=== PATIENT | female | born 1975 | race Caucasian/White ===

== ENCOUNTER 2020-10-23 18:51 | Emergency (ER) | payer OTHER, SELFPAY ==
[2020-10-23] VITALS (8 sets, daily range): BP systolic 97–146; BP diastolic 59–81; PULSE 91–98; RESP 20; TEMP 35.2–35.8; O2SAT 100
--- NOTE | 2020-10-23 18:59 | ECG_ITS ---
Measurements Intervals Isabella Rate: 93 P: 76 AK: 128 QRS: 181 QRSD: 103 T: 68 QT: 420 QTc: 525 Interpretive Statements SINUS RHYTHM RIGHT AXIS DEVIATION LEFT ATRIAL ENLARGEMENT POOR R WAVE PROGRESSION, ANTERIOR LEADS INFERIOR INFARCT, AGE INDETERMINATE BASELINE ARTIFACT- I, AVR, AVL, AVF, V3, V5-V6 ABNORMAL ECG Electronically Signed On 10-25-2020 7:26:17 CAFETERIA ASSISTANT by Moreno Ovalle D.O.
[2020-10-23] MEDS: SODIUM CHLORIDE 0.9% IV 1,000 ML 999 ML IV CONT (19:06)
--- NOTE | 2020-10-23 19:08 | ED.GENADULT ---
HPI - General Adult General Chief complaint: Weakness Stated complaint: unsure Source: patient and EMS Mode of arrival: EMS Limitations: altered mental status History of Present Illness HPI narrative: Anupama is a 45F with a PMH of insulin dependent diabetes that was brought in by EMS for feeling poor. She started feeling tired a few days ago and had some pressure in her chest and severe fatigue followed. She now says she has not had her insulin for 5 days. She is very distraught and a poor historian so more history could not be obtained. Related Data Home Medications Medication Instructions Recorded Confirmed escitalopram oxalate 10 mg PO DAILY 10/23/20 10/23/20 fluticasone propion-salmeterol 1 inh INHALATION BID 10/23/20 10/23/20 [Wixela Inhub] glipizide 5 mg PO DAILY 10/23/20 10/23/20 insulin glargine [Lantus Solostar SUBCUT 10/23/20 U-100 Insulin] metformin 850 mg PO BID 10/23/20 10/23/20 rosuvastatin 10 mg PO DAILY 10/23/20 10/23/20 Allergies Allergy/AdvReac Type Severity Reaction Status Date / Time morphine Allergy Unknown Verified 10/23/20 21:03 Review of Systems Review of Systems: ROS unobtainable: Yes unobtainable due to mental status [facility] Family History Family History Father Cerebrovascular accident Social History Social History Smoking status: Former smoker Gender identity (if verbalized by the patient): Female Exam Const: General: alert Orientation/consciousness: patient oriented x3 Other: In moderate distress. Is alert and orieted but cannot stay concentrated long enough to anser may questions. Cachectic appearing. HENMT: Head: normal to inspection Other: atraumatic Eyes: Pupils: Equal, round and reactive pupils present Neck: Neck: normal visual inspection Chest: Chest palpation & inspection: normal inspection of the chest Resp: Auscultation: clear to auscultation bilaterally and no wheezes Other: Deep rapid respirations Cardio: Rate: regular rate Rhythm: regular rhythm Heart sounds: no murmurs GI: Inspection: non-distended GI Palp: Yes Soft to palpation, No Tenderness to palpation present (GI), No Guarding due to palpation present (GI) and No Rigid due to palpation : General: Yes no CVA tenderness Urinary Catheter: Urinary Catheter: patent and draining Skin: General skin exam: normal color Rashes: no rashes Neuro: General: patient oriented x3 Extrem: General: normal to inspection Psych: Appearance: disheveled Attitude: not cooperative Course Course Emergency Course: Anupama was evaluated. As her temp was low she was given warm blankets, and given warm IV fluids. Labs were ordered as below. She had normal saline running wide open. Blood gas showed a pH of 6.86. Because of this a Bicarb drip was started. CMP showed a K+ of 3.7 and a sugar of 490. Next she was given 20 mEq of potassium. Fluids were continued and a 5u insulin bolus was given. Then she was started at 5u per hour. [facility] was called at 2024. The hospitalist called back at 2034. I discussed the case with Dr. Bennett Nath. She accepted the patient for transfer. Repeat accucheck was 386. She was transferred to the [facility] ICU by ALS. Vital Signs Vital signs: Vital Signs Pulse Rate 91 10/23/20 19:15 Respiratory Rate 20 10/23/20 19:15 Blood Pressure 143/65 H 10/23/20 19:15 Pulse Oximetry 100 10/23/20 19:15 Temperature 95.6 F L 10/23/20 20:00 Pulse Rate 98 10/23/20 21:19 Respiratory Rate 20 10/23/20 21:13 Blood Pressure 144/76 H 10/23/20 21:13 Pulse Oximetry 100 10/23/20 21:13 Medical Decision Making Vital Signs Vital Signs: Vital Signs Pulse Rate 91 10/23/20 19:15 Respiratory Rate 20 10/23/20 19:15 Blood Pressure 143/65 H 10/23/20 19:15 Pulse Oximetry 100 10/23/20 19:15 Temperature 95.6 F L 10/23/20 20:00
[2020-10-23 19:25] LABS: Base Excess ABG -29.7 mmol/L (0-2); Basophils Absolute Auto 0.06 K/mm3 (0.00-0.10); Basophils Percent Auto 0.4 % (0.0-1.0); Eosinophils Absolute Auto 0.01 K/mm3 (0.02-0.50); Eosinophils Percent Auto 0.1 % (1.0-6.0); HCO3 ABG 2.8 mmol/L (23-29); Hematocrit 48.6 % (35.0-49.0); Hemoglobin 16.5 g/dL (12.0-15.0); Immature Granulocyte Absolute 0.24 K/mm3 (0.00-0.00); Immature Granulocyte Percent A 1.5 % (0.0-0.0); Lymphocytes Absolute Auto 1.34 K/mm3 (1.10-4.50); Lymphocytes Percent Auto 8.5 % (18.0-42.0); Mean Corpuscular Hemoglobin 31.3 pg (27.0-31.0); Mean Corpuscular Volume 92.2 fL (78.0-102.0); Mean Platelet Volume 11.3 fl (9.2-11.8); Monocytes Absolute Auto 0.82 K/mm3 (0.10-0.90); Monocytes Percent Auto 5.2 % (2.0-11.0); Neutrophils Absolute Auto 13.3 K/mm3 (1.7-7.2); Neutrophils Percent Auto 84.3 % (50.0-70.0); Oxygen Content ABG 20.9 %vol (16.0-22.0); Oxygen Saturation ABG 98.2 % (95-97); Oxyhemoglobin 97.5 % (94-100); PO2 ABG 147.9 mmHg (80-90); Platelet Count Result 111 K/mm3 (150-420); Red Blood Count 5.27 M/mm3 (4.20-5.40); Red Cell Distribution Width 12.4 % (11.6-14.4); Total Hemoglobin 15.1 g/dL; White Blood Count 15.8 K/mm3 (4.8-10.8)
[2020-10-23 19:29] LABS: Device ROOM AIR; Modified Allen's Test Pass; PCO2 ABG 15.8 mmHg (35-45); Site Drawn RIGHT RADIAL; pH ABG 6.86 (7.35-7.45)
[2020-10-23 19:39] LABS: Prothrombin Time 10.6 Seconds (9.50-12.10)
[2020-10-23 19:45] LABS: Lactic Acid Reflex 4.4 mmol/L (0.4-2.0)
[2020-10-23 19:47] LABS: BNP 17.1 pg/mL (0-100); Troponin I < 0.02 ng/mL (0.00-0.056)
[2020-10-23 19:48] LABS: Alanine Aminotransferase 47 U/L (14-59); Albumin Level 3.3 g/dL (3.4-5.0); Alkaline Phosphatase 176 U/L (46-116); Anion Gap 30 mmol/L (8-16); Aspartate Amino Transferase 26 U/L (15-37); Bilirubin,Total 0.4 mg/dL (0.00-1.00); Blood Urea Nitrogen 33 mg/dL (7-18); Calcium 8.4 mg/dL (8.5-10.1); Carbon Dioxide 6 mmol/L (21-32); Chloride 95 mmol/L (98-108); Estimated CRCL calculation 42 ml/min; Estimated Glomerular Filt Rate 47; Lipase 43 U/L (73-393); Osmolality Calculated 301 mOsm/kg (285-295); Potassium 3.7 mmol/L (3.5-5.1); Sodium 131 mmol/L (136-145); Total Protein 7.5 g/dL (6.4-8.2)
[2020-10-23 19:49] LABS: Glucose 490 mg/dL (70-99)
[2020-10-23] MEDS: KCL 20 MEQ/SW 100 ML 100 ML 50 MEQ IVPB (20:00)
[2020-10-23] MEDS: SODIUM BICARBONATE 8.4% 150 MEQ in WATER, STERILE FOR INJECTION 950 ML 50 MEQ IV CONT (20:24)
--- NOTE | 2020-10-23 20:26 | PC.NURSE ---
RUSTY PHARMACIST FROM [facility] CALLED FOR CONSULT ON 1,000 ML STERILE WATER WITH 150 MEQ 8.4 SODIUM BICARBONATE - VERIFIED WITH DR WHITMORE
[2020-10-23] MEDS: INSULIN HUMAN REGULAR (*BKC) 100 UNITS/ML IV PUSH (20:40)
[2020-10-23] MEDS: SODIUM CHLORIDE 0.9% IV 2,000 ML 999 ML (20:42)
[2020-10-23] MEDS: INSULIN HUMAN REGULAR (*BKC) 100 UNITS in SODIUM CHLORIDE 0.9% IV 99 ML IV CONT (20:43)
[2020-10-23 20:50] LABS: Glucose Point of Care 386 (65-105)
[2020-10-23 20:56] LABS: Add Urine Microscopic? YES; Appearance Urine Clear (Clear); Bilirubin Urine Negative (Negative); Blood Urine 1+ (Negative); Color Urine Yellow (Yellow); Glucose Urine UA 3+ (Negative); Ketones Urine 3+ (Negative); Leukocyte Esterase Ur Negative (Negative); Nitrate Urine Negative (Negative); Protein Urine 2+ (Negative); Specific Grav Ur >= 1.030 (1.010-1.020); Urobilinogen Urine 0.2 mg/dL (0.2-1.0)
[2020-10-23 21:01] LABS: WBC Urine 0-3 /hpf (0-3)
[2020-10-23 21:02] LABS: Bacteria Urine Trace /hpf; Squamous Epithelial Cell Urine Moderate /hpf (Few)
[2020-10-23 21:37] LABS: Glucose Point of Care 326 (65-105)
[2020-10-23 22:22] LABS: Reflex Lactic Acid Yes or No Add Lactic
[2020-10-23 22:38] LABS: Glucose Point of Care 335 (65-105)
== END 2020-10-23 22:00 | disposition short-term general hospital (02) ==
PROVIDERS: Emergency Provider Family Medicine
DX: E11.10 Type 2 diabetes mellitus with ketoacidosis without coma (principal); Z79.4 Long term (current) use of insulin
CPT/HCPCS: 36415; 36600; 80053; 81001; 82805; 83605; 83690; 83880; 84484; 85025; 85610; 93005; 96361; 96365; 96366; 96367; 96368; 99285; 99291; J1815; J3480; J7030

== ENCOUNTER 2020-10-23 22:38 | Inpatient (IN) | payer OTHER, SELFPAY ==
--- NOTE | ~2020-10-23 | XR_ITS ---
XR chest 2V DATE: 10/24/2020 13:59 INDICATION: Shortness of breath. Weight loss. TECHNIQUE: AP and lateral views COMPARISON: 02/09/2017 AP chest FINDINGS: Status post sternotomy. Normal heart size. No hilar or mediastinal enlargement. No pulmonary infiltrate or consolidation, ple ural effusion or pulmonary vascular congestion or pneumothorax. Surgical clips, right upper quadrant, consistent with cholecystectomy. IMPRESSION: No active cardiopulmonary disease Status post cholecystectomy Reviewed, dictated and finalized at location A. BING MACHINE OPERATOR
--- NOTE | 2020-10-23 23:00 | PM.IMHP ---
H&P: HPI History of Present Illness Date/Time: 10/23/20 23:00 Chief complaint: DKA Narrative: Anupama Jang is a 45 year old female with PMHx significant for, COPD, Tobacco use, LUIS on CPAP, Insulin dependent Diabetes Mellitus, Pulmonic valve replacement, to bioprosthetic according to records from outside facility. Patient presented to ED at outside facility due to fatigue, feeling poorly, not using her insulin in roughly 5 days. Patient is not giving much history at the present time, much of this was obtained form ED and medical records. Preliminary work up was significant for High Anion Gap metabolic acidosis, patient also hypothermic upon arrival to outside's facility ED. Most work up is low yielding. Patient is now transferred to our facility and in ICU. Review of Systems Review of Systems: Narrative: Patient feeling very fatigue. Unable to obtain more history as patient is not cooperating with history taking currently. Only y/n answers [facility] Family History Family History Father Cerebrovascular accident Social History Social History Years smoked: 10 Smoking status: Current every day smoker Tobacco type: cigarettes Second hand tobacco smoke exposure: Yes Alcohol intake: never Substance use type: marijuana Last use: month ago Gender identity (if verbalized by the patient): Female Spiritual care concerns: No Meds Home Medications and Allergies Home Medications Medication Instructions Recorded Confirmed Type escitalopram oxalate 10 mg PO DAILY 10/23/20 10/23/20 History fluticasone propion-salmeterol 1 inh INHALATION BID 10/23/20 10/23/20 History [Wixela Inhub] glipizide 5 mg PO DAILY 10/23/20 10/23/20 History insulin glargine [Lantus Solostar SUBCUT 10/23/20 History U-100 Insulin] metformin 850 mg PO BID 10/23/20 10/23/20 History rosuvastatin 10 mg PO DAILY 10/23/20 10/23/20 History Allergies Allergy/AdvReac Type Severity Reaction Status Date / Time morphine Allergy Unknown Verified 10/23/20 21:03 Exam Narrative: Exam Narrative: Acutely ill looking in bed. Sleeping. Const: General: ill appearing, lethargic and tired appearing Nutritional Appearance: cachectic Orientation/consciousness: patient oriented x3, lethargic and Other orientation findings (Easily arousable.) HENMT: Head: normal to inspection and normocephalic Ears: hearing grossly normal bilaterally General nose exam: Normal external nose present Face and sinus: other (schar on chin which is healed.) Mouth: Yes Normal oral and palatal mucosa present Eyes: General: appearance normal, both eyes and all related structures Pupils: Equal, round and reactive pupils present EOM: EOMs intact bilaterally Neck: Neck: normal visual inspection, full ROM, no lymphadenopathy and no JVD Resp: Effort & Inspection: normal respiratory effort, able to speak in complete sentences and tachypneic Auscultation: clear to auscultation bilaterally Cardio: Jugular venous distension: no JVD Heart sounds: S1 normal heart sound present and S2 normal heart sound present GI: Inspection: normal to inspection GI Palp: Yes Soft to palpation and Yes No hepatosplenomegaly present Skin: Lesions: other (Chin schar which is healed) Rashes: no rashes Trauma: no lacerations or abrasions Wounds: no wounds Neuro: General: patient oriented x3 and CN's II-XI intact bilaterally Cranial nerves: Yes CN's II-XII intact bilaterally and Yes Equal, round and reactive pupils present Cognition (Neuro): normal cognition Speech: normal speech Motor exam (neuro): 5/5 motor strength present throughout Sensory Exam: normal sensation Extrem: General: normal to inspection, no joint enlargement and no pedal edema Assessment and Plan Assessment and plan (1) DKA (diabetic ketoacidoses): Code(s): E11.10 - Type 2 diabetes mellitus with ketoacidos
[2020-10-23] MEDS: INSULIN HUMAN REGULAR (*BKC) 100 UNITS in SODIUM CHLORIDE 0.9% IV 99 ML 5.5 UNITS IV CONT (23:30)
[2020-10-23 23:39] VITALS: BMI 16.7
--- NOTE | 2020-10-23 23:49 | ADMIMU ---
This patient, Anupama Jang, was admitted to ICU status, and placed in Intensive Care Unit-3 at 2227. Patient/family oriented to hospital policies and general routines including ID bracelet, bed and alarms, visiting hours, pain management, procedures, bathroom and other care routines, personal items, smoking policy, room service/diet, and visiting hours. Pt declines wanting anything locked in safe. Information on how to activate the Rapid Response Team has been discussed. Patient/Family are encouraged to report perceived risks to care and to ask questions if they do not understand what they are told or what they should do.
--- NOTE | 2020-10-23 23:50 | PC.NURSE ---
Pt extremely sleeping during admission assessment. Questions answered to best of patients ability at this time.
[2020-10-24] VITALS (10 sets, daily range): BP systolic 98–115; BP diastolic 54–79; PULSE 92–108; RESP 10–20; TEMP 36.3–37; O2SAT 91–100
[2020-10-24] MEDS: SODIUM CHLORIDE 0.9% IV 1,000 ML 150 ML IV CONT (00:06)
[2020-10-24 00:39] LABS: Anion Gap 16 mmol/L (8-16); Blood Urea Nitrogen 25 mg/dL (7-17); Calcium 7.4 mg/dL (8.4-10.2); Carbon Dioxide 6 mmol/L (22-30); Chloride 111 mmol/L (98-107); Estimated CRCL calculation 74 ml/min; Estimated Glomerular Filt Rate > 60; Glucose 309 mg/dL (65-105); Magnesium 1.4 mg/dL (1.6-2.3); Phosphorus 2.4 mg/dL (2.5-4.5); Potassium 3.5 mmol/L (3.4-5.0); Sodium 133 mmol/L (137-145)
[2020-10-24 01:19] LABS: Glucose Point of Care 302 (65-105)
[2020-10-24 01:36] LABS: Glucose Point of Care 274 (65-105)
[2020-10-24] MEDS: KCL 20 MEQ/D5/0.45% SOD CHL 1,000 ML 150 ML IV CONT ×2 (02:41→10:01)
[2020-10-24 02:44] LABS: Glucose Point of Care 210 (65-105)
[2020-10-24 02:53] LABS: Add Urine Microscopic? YES; Amorphous Sediment Urine Few; Appearance Urine Clear (Clear); Bacteria Urine Trace /hpf; Bilirubin Urine Negative (Negative); Blood Urine 2+ (Negative); Color Urine Straw (Yellow); Glucose Urine UA 3+ mg/dL (Negative); Ketones Urine 1+ mg/dL (Negative); Leukocyte Esterase Ur Negative LEU/UL (NEGATIVE); Mucus Urine Rare /lpf; Nitrate Urine Negative (Negative); Protein Urine 1+ mg/dL (Negative); RBC Urine 0-2 /hpf (0-2); Squamous Epithelial Cell Urine Occasional /hpf (Few); Urobilinogen Urine Negative mg/dL (<2.0); WBC Urine 0-3 /hpf (0-3)
[2020-10-24 03:45] LABS: Anion Gap 10 mmol/L (8-16); Blood Urea Nitrogen 24 mg/dL (7-17); Calcium 7.5 mg/dL (8.4-10.2); Carbon Dioxide 11 mmol/L (22-30); Chloride 115 mmol/L (98-107); Estimated CRCL calculation 106 ml/min; Estimated Glomerular Filt Rate > 60; Glucose 199 mg/dL (65-105); Sodium 136 mmol/L (137-145)
[2020-10-24 03:47] LABS: Potassium 3.7 mmol/L (3.4-5.0)
[2020-10-24 05:47] LABS: Glucose Point of Care 179 (65-105)
[2020-10-24 06:47] LABS: Glucose Point of Care 142 (65-105)
[2020-10-24 06:47] LABS: Glucose Point of Care 185 (65-105)
[2020-10-24 07:30] LABS: Glucose Point of Care 144 (65-105)
[2020-10-24 07:57] LABS: Anion Gap 8 mmol/L (8-16); Blood Urea Nitrogen 21 mg/dL (7-17); Calcium 7.6 mg/dL (8.4-10.2); Carbon Dioxide 16 mmol/L (22-30); Chloride 112 mmol/L (98-107); Estimated CRCL calculation 105 ml/min; Estimated Glomerular Filt Rate > 60; Glucose 139 mg/dL (65-105); Sodium 136 mmol/L (137-145)
[2020-10-24 08:37] LABS: Potassium 2.9 mmol/L (3.4-5.0)
--- NOTE | 2020-10-24 08:42 | WPDCNINT ---
Assessment and Plan Assessment and plan (1) DKA (diabetic ketoacidoses): Qualifiers: Diabetes mellitus complication detail: without coma Diabetes mellitus type: type 1 Qualified Code(s): E10.10 - Type 1 diabetes mellitus with ketoacidosis without coma Code(s): E11.10 - Type 2 diabetes mellitus with ketoacidosis without coma Status: Acute Assessment and Plan: Due to not adherence with insulin regimen. Patient is on an insulin drip per protocol. Will titrate her dextrose infusion the patient's anion gap has closed his CO2 remains markedly low. Monitor serial BMP for improvement in bicarb. Advanced diet to sugar free clears. The patient's repeat BMP demonstrated improved bicarb. Will transition the patient to Lantus 20 units subq HS and moderate sliding scale insulin with Accu-Cheks a.c. HS and consistent carbohydrate diet. Patient will be transferred to the medical floor. (2) LUIS (obstructive sleep apnea): Code(s): G47.33 - Obstructive sleep apnea (adult) (pediatric) Status: Acute Assessment and Plan: She has a history of obstructive sleep apnea but has not used her CPAP machine in a couple of years. She has had significant weight loss and is unlikely that he is still as sleep apnea. Will check apnea link. (3) COPD (chronic obstructive pulmonary disease): Qualifiers: COPD type: unspecified COPD Qualified Code(s): J44.9 - Chronic obstructive pulmonary disease, unspecified Code(s): J44.9 - Chronic obstructive pulmonary disease, unspecified Status: Acute Assessment and Plan: No evidence of acute exacerbation. I attempted to discuss the importance of tobacco cessation with the patient however she is not interested in quitting smoking. (4) Hypokalemia: Code(s): E87.6 - Hypokalemia Status: Acute Assessment and Plan: 40 mEq potassium chloride rider has been ordered. Repeat BMP demonstrated worsening hypokalemia. An additional 40 p.o. has been given now and 40 p.o. at 2:00 p.m. repeat BMP at 6:00 p.m. (5) Hypomagnesemia: Code(s): E83.42 - Hypomagnesemia Status: Acute Assessment and Plan: 3 g magnesium sulfate rider has been ordered. (6) Pulmonary stenosis: Qualifiers: Cardiac valve disease etiology: nonrheumatic Qualified Code(s): I37.0 - Nonrheumatic pulmonary valve stenosis Code(s): I37.0 - Nonrheumatic pulmonary valve stenosis Status: Acute Assessment and Plan: Given the patient reports orthopnea and dyspnea on exertion as well as lower extremity swelling will check an echocardiogram to further delineate the patient's cardiac structure and function. She has not had echo since 2017. (7) Protein-calorie malnutrition, severe: Code(s): E43 - Unspecified severe protein-calorie malnutrition Status: Acute Assessment and Plan: Most likely due to non adherence was insulin regimen and subsequent catabolic state. family educator and dietitian consult. Given the patient's history of tobacco abuse and cachectic state will check a chest x-ray. Additional Plan 1 hour spent in critical care activities. This case had a high probability of a clinically significant, sudden, or life threatening deterioration of this patient's condition which required my full and direct attention, intervention and personal management. Steward/Stewardess Dining Room Consult Note Consult date: 10/24/20 Time Seen: 09:00 HPI: Anupama Jang is a 45 year old female with a past medical history of primary pulmonary stenosis status post open heart surgery, persistent right ventricular systolic dysfunction and insulin-dependent diabetes mellitus who presented to the ER at [place] due to generalized weakness. The patient was noted to be in DKA and was transferred to our facility. The patient had not taken her insulin and 4-5 days. She denies having any abdominal pain, no nausea or vomiting. W
[2020-10-24 09:16] LABS: Glucose Point of Care 110 (65-105)
[2020-10-24 09:16] LABS: Glucose Point of Care 141 (65-105)
[2020-10-24] MEDS: LACTATED RINGERS 1,000 ML 999 ML IV CONT (10:08)
[2020-10-24] MEDS: MAGNESIUM SULFATE 3GM/D5W100ML 3 GM/100 ML BAG IVPB (10:09)
[2020-10-24 10:20] LABS: Glucose Point of Care 152 (65-105)
[2020-10-24] MEDS: POTASSIUM CHLORIDE 20 MEQ TABLET 40 MEQ PO ×2 (10:57→13:27)
[2020-10-24 11:13] LABS: Glucose Point of Care 129 (65-105)
[2020-10-24 11:31] LABS: Anion Gap 5 mmol/L (8-16); Blood Urea Nitrogen 19 mg/dL (7-17); Calcium 7.3 mg/dL (8.4-10.2); Carbon Dioxide 18 mmol/L (22-30); Chloride 111 mmol/L (98-107); Estimated CRCL calculation 105 ml/min; Estimated Glomerular Filt Rate > 60; Glucose 109 mg/dL (65-105); Potassium 2.6 mmol/L (3.4-5.0); Sodium 134 mmol/L (137-145)
[2020-10-24 12:25] LABS: Glucose Point of Care 105 (65-105)
[2020-10-24] MEDS: INSULIN GLARGINE (*BKC) 100 UNITS/ML SUB-Q (12:34)
[2020-10-24 13:11] LABS: Glucose Point of Care 112 (65-105)
--- NOTE | 2020-10-24 13:14 | PM.IMPN ---
Progress Note: A&P Assessment and Plan (1) DKA (diabetic ketoacidoses): Qualifiers: Diabetes mellitus type: type 1 Diabetes mellitus complication detail: without coma Qualified Code(s): E10.10 - Type 1 diabetes mellitus with ketoacidosis without coma Code(s): E11.10 - Type 2 diabetes mellitus with ketoacidosis without coma Status: Acute Assessment and Plan: -secondary to non adherence to insulin -DKA resolved, gap closed x2, patient tolerating p.o. intake -repleting potassium as needed for potassium shift with insulin -she has been transitioned back to her home Lantus 20 units q.h.s., consistent carb diet with sliding scale insulin coverage -Patient will be transferred to the medical floor as she is clinically improving (2) LUIS (obstructive sleep apnea): Code(s): G47.33 - Obstructive sleep apnea (adult) (pediatric) Status: Acute Assessment and Plan: Patient has lost significant weight and sleep apnea issue she may have resolved (3) COPD (chronic obstructive pulmonary disease): Qualifiers: COPD type: unspecified COPD Qualified Code(s): J44.9 - Chronic obstructive pulmonary disease, unspecified Code(s): J44.9 - Chronic obstructive pulmonary disease, unspecified Status: Acute Assessment and Plan: No interest in tobacco cessation at this time (4) Hypokalemia: Code(s): E87.6 - Hypokalemia Status: Acute Assessment and Plan: Secondary to DKA insulin administration, repleting with p.o. and IV potassium chloride (5) Hypomagnesemia: Code(s): E83.42 - Hypomagnesemia Status: Acute Assessment and Plan: Supplementing magnesium, 3 g Mag sulfate given (6) Pulmonary stenosis: Qualifiers: Cardiac valve disease etiology: nonrheumatic Qualified Code(s): I37.0 - Nonrheumatic pulmonary valve stenosis Code(s): I37.0 - Nonrheumatic pulmonary valve stenosis Status: Acute Assessment and Plan: -evident murmur -last echocardiogram was 2016, no sign of exacerbation at this time pulmonary stenosis will follow-up with PCP (7) Protein-calorie malnutrition, severe: Code(s): E43 - Unspecified severe protein-calorie malnutrition Status: Acute Assessment and Plan: Chest x-ray negative Patient is a follow-up with dietitian Additional Plan Diet: Carb controlled DVT prophylaxis: SCDs Code status: Full code Disposition: Home Subjective Date/time seen: 10/24/20 13:14 Patient examined. She was admitted for DKA from not taking her medications. She is on metformin b.i.d., glipizide, Lantus 20 units q.h.s.. She admitted to the ICU and her gap from 30 has been corrected. Her potassium is being repleted and she is stable to move out to the medical floor. transition the patient back to her home Lantus 20 units q.h.s. and metformin. Patient's PCP is Dr. Peter Bianchi. Patient states prior to admission she had polyuria, polydipsia these are all consistent with DKA. She states she ran out of her medications and that she may have gone to DKA. Patient advanced to carb controlled diet. Patient may need echocardiogram with pulmonary stenosis history. Review of Systems Review of Systems: All systems reviewed & are unremarkable except as noted in HPI and below Exam Narrative: Exam Narrative: - GENERAL: Thin ill-appearing disheveled woman in no acute distress eating her lunch - EYES: EOMI. Anicteric. - HENT: Moist mucous membranes. Bruise on chin. - LUNGS: Clear to auscultation bilaterally, no wheezing, rhonchi, or rales. - CARDIOVASCULAR: Regular rate and rhythm. Murmur 2/6. No JVD. - ABDOMEN: Soft, non-tender and non-distended. - EXTREMITIES: No edema. Peripheral pulses 2+. Non-tender. - NEUROLOGIC: No focal neurological deficits. CN II-XII grossly intact. - PSYCHIATRIC: Awake, Alert and oriented x 3. Appropriate mood and affect. - SKIN: No rashes or lesions. Warm. - LYMPH: No cerv
[2020-10-24] MEDS: SODIUM CHLORIDE 0.9% IV 1,000 ML 125 ML IV CONT ×2 (13:20→21:48)
[2020-10-24 14:31] LABS: Hemoglobin A1C > 14.0 % (<5.7)
--- NOTE | 2020-10-24 15:22 | PC.NURSE ---
Transferred patient to 258 from ICU 3 at 1513. Personal belongings sent with patient. Report called to Loraine.
[2020-10-24 16:36] LABS: Glucose Point of Care 331 (65-105)
[2020-10-24] MEDS: INSULIN ASPART (*BKC) 100 UNITS/ML SUB-Q (16:50)
[2020-10-24 18:59] LABS: Anion Gap 3 mmol/L (8-16); Blood Urea Nitrogen 16 mg/dL (7-17); Calcium 7.2 mg/dL (8.4-10.2); Carbon Dioxide 21 mmol/L (22-30); Chloride 107 mmol/L (98-107); Estimated CRCL calculation 105 ml/min; Estimated Glomerular Filt Rate > 60; Glucose 343 mg/dL (65-105); Potassium 3.7 mmol/L (3.4-5.0); Sodium 131 mmol/L (137-145)
[2020-10-24] MEDS: INSULIN ASPART (*BKC) 100 UNITS/ML 10 UNITS SUB-Q (21:14)
[2020-10-24] MEDS: INSULIN GLARGINE (*BKC) 100 UNITS/ML 20 UNITS SUB-Q (21:15)
[2020-10-24 22:21] LABS: Glucose Point of Care 441 (65-105)
[2020-10-24] MEDS: FLUTICASONE/SALMETEROL 115-21 MCG INHALER 1 PUFF 2 PUFF INHALATION (22:29)
[2020-10-24 23:49] LABS: Anion Gap 4 mmol/L (8-16); Blood Urea Nitrogen 13 mg/dL (7-17); Calcium 7.8 mg/dL (8.4-10.2); Carbon Dioxide 23 mmol/L (22-30); Chloride 106 mmol/L (98-107); Estimated CRCL calculation 105 ml/min; Estimated Glomerular Filt Rate > 60; Glucose 206 mg/dL (65-105); Potassium 3.3 mmol/L (3.4-5.0); Sodium 133 mmol/L (137-145)
--- NOTE | 2020-10-25 | ECHO_ITS ---
Patient Info Name: Anupama Jang Age: 45 years : 1975 Gender: Female Ht: 65 in Wt: 100 lbs BSA: 1.43 m2 HR: 100 bpm BP: 126 / 74 mmHg Heart Rhythm: Tachycardia Technical Quality: Good Exam Date: 10/25/2020 10:29 AM Exam Location: [facility] Patient Status: Inpatient Admit Date: 10/23/2020 Staff Ordering Physician: Nikki Gonzalez DO Automatic Silk Screen Printer: Curly Rodney RDCS Attending Provider: Pham Guajardo MD Referring Physician: Carlos VOGEL; Exam Type: CA echo doppler color flow Study Info Indications Q22.1 - Congenital pulmonary valve stenosis Complete two-dimensional, color flow and Doppler transthoracic echocardiogram is performed. History/Risk Factors Pulmonary valve stenosis s/p bioprosthetic PVR; T1DM, DKA, COPD, orthopnea, SOB, edema. Summary 1. Right ventricular systolic function is normal. 2. Prominent moderator band. 3. Focal, echogenic hypertrophy at that mid RV level suggestive of calcified papillary muscle heads. In significant intracavitary gradient with abnormal outflow tract contour. 4. Left ventricular systolic function is normal, estimated at >70%. 5. There is no increased left ventricular wall thickness. 6. Left ventricular septal wall motion is abnormal with septal motion related to bundle branch block. 7. There is mild tricuspid valve regurgitation. 8. Moderate pulmonary hypertension, estimated pulmonary arterial systolic pressure is 48 mmHg. 9. Apparent bioprosthetic valve in the pulmonic position with mild stenosis, moderate leaflet sclerosis and mean gradient 16 mmHg. Leaflets not well visualized in several views. 10. There is trace pulmonic regurgitation. Left Ventricle Left ventricular chamber dimension is normal. Left ventricular systolic function is normal, estimated at >70%. There is no increased left ventricular wall thickness. Left ventricular septal wall motion is abnormal with septal motion related to bundle branch block. The left ventricular diastolic function is normal. Right Ventricle Right ventricular chamber dimension is normal. Right ventricular systolic function is normal. Prominent moderator band. Focal, echogenic hypertrophy at that mid RV level suggestive of calcified papillary muscle heads. In significant intracavitary gradient with abnormal outflow tract contour. Left Atria Left atrial chamber dimension is normal. Right Atria Right atrial chamber dimension is normal. Aortic Valve The aortic valve is trileaflet. There is no aortic valve stenosis. There is no aortic valve regurgitation. Pulmonic Valve The pulmonic valve is not well visualized. There is mild pulmonic valve stenosis. There is trace pulmonic regurgitation. There is mild pulmonic valve calcification. Apparent bioprosthetic valve in the pulmonic position with mild stenosis, moderate leaflet sclerosis and mean gradient 16 mmHg. Leaflets not well visualized in several views. Mitral Valve The mitral valve has normal leaflets. There is trace mitral valve regurgitation. Tricuspid Valve The tricuspid valve leaflets are normal. There is mild tricuspid valve regurgitation. Moderate pulmonary hypertension, estimated pulmonary arterial systolic pressure is 48 mmHg. Pericardium/Pleural The pericardium appears normal. There is trivial pericardial effusion. Inferior Vena Cava Normal inferior vena cava with >50% collapse upon inspiration consistent with normal right atrial pressure, 5 mmHg. Aorta
[2020-10-25 00:11] LABS: Glucose Point of Care 169 (65-105)
[2020-10-25 01:13] LABS: Glucose Point of Care 222 (65-105)
[2020-10-25 05:33] VITALS: BP 122/77; PULSE 107; RESP 20; TEMP 36.5; O2SAT 99
[2020-10-25 05:48] LABS: Hematocrit 32.8 % (37.0-47.0); Hemoglobin 11.8 g/dL (12.0-15.0); Mean Corpuscular Hemoglobin 31.2 pg (26-34); Mean Corpuscular Volume 86.8 fl (80-100); Mean Platelet Volume 10.8 fl (7.4-10.4); Platelet Count Result 79 k/mm3 (150-375); Red Blood Count 3.78 M/mm3 (4.2-5.4); Red Cell Distribution Width 13.2 % (11.5-14.5); White Blood Count 8.5 K/mm3 (4.5-10.0)
[2020-10-25 05:49] LABS: Alanine Aminotransferase 38 U/L (4-35); Albumin Level 2.4 g/dL (3.5-5.1); Alkaline Phosphatase 123 U/L (38-126); Anion Gap 0 mmol/L (8-16); Aspartate Amino Transferase 59 U/L (14-36); Bilirubin,Total 0.2 mg/dL (0.2-1.3); Blood Urea Nitrogen 11 mg/dL (7-17); Calcium 7.3 mg/dL (8.4-10.2); Carbon Dioxide 24 mmol/L (22-30); Chloride 109 mmol/L (98-107); Estimated CRCL calculation 135 ml/min; Estimated Glomerular Filt Rate > 60; Glucose 193 mg/dL (65-105); Magnesium 1.8 mg/dL (1.6-2.3); Potassium 3.1 mmol/L (3.4-5.0); Sodium 133 mmol/L (137-145)
[2020-10-25] MEDS: SODIUM CHLORIDE 0.9% IV 1,000 ML 125 ML IV CONT (05:56)
[2020-10-25 07:50] LABS: Glucose Point of Care 193 (65-105)
[2020-10-25 08:00] VITALS: BP 126/74; PULSE 102; RESP 18; TEMP 36.3; O2SAT 100
[2020-10-25 08:10] LABS: Glucose Point of Care 94 (65-105)
[2020-10-25 08:13] LABS: Glucose Point of Care 67 (65-105)
[2020-10-25 08:14] LABS: Glucose Point of Care 110 (65-105)
[2020-10-25 08:26] VITALS: RESP 20; O2SAT 99
--- NOTE | 2020-10-25 09:32 | PM.DS ---
DS: Admitting Diagnosis Admitting Diagnosis Admitting Diagnosis: DKA DS: Discharge Diagnosis Discharge Diagnosis (1) DKA (diabetic ketoacidoses): Qualifiers: Diabetes mellitus complication detail: without coma Diabetes mellitus type: type 1 Qualified Code(s): E10.10 - Type 1 diabetes mellitus with ketoacidosis without coma Code(s): E11.10 - Type 2 diabetes mellitus with ketoacidosis without coma Status: Acute Assessment and Plan: -secondary to non adherence to insulin -DKA resolved, gap closed x2, patient tolerating p.o. intake -repleting potassium as needed for potassium shift with insulin -she has been transitioned back to her home Lantus 20 units q.h.s., consistent carb diet with sliding scale insulin coverage -diabetic Education (2) LUIS (obstructive sleep apnea): Code(s): G47.33 - Obstructive sleep apnea (adult) (pediatric) Status: Acute Assessment and Plan: Patient has lost significant weight and sleep apnea issue she may have resolved (3) COPD (chronic obstructive pulmonary disease): Qualifiers: COPD type: unspecified COPD Qualified Code(s): J44.9 - Chronic obstructive pulmonary disease, unspecified Code(s): J44.9 - Chronic obstructive pulmonary disease, unspecified Status: Acute Assessment and Plan: No interest in tobacco cessation at this time (4) Hypokalemia: Code(s): E87.6 - Hypokalemia Status: Acute Assessment and Plan: Secondary to DKA insulin administration, repleting with p.o. potassium (5) Hypomagnesemia: Code(s): E83.42 - Hypomagnesemia Status: Acute Assessment and Plan: Supplementing magnesium, 3 g Mag sulfate given (6) Pulmonary stenosis: Qualifiers: Cardiac valve disease etiology: nonrheumatic Qualified Code(s): I37.0 - Nonrheumatic pulmonary valve stenosis Code(s): I37.0 - Nonrheumatic pulmonary valve stenosis Status: Acute Assessment and Plan: -evident murmur -last echocardiogram was 2016, repeat echocardiogram done 10/25/2020, no sign of exacerbation at this time pulmonary stenosis will follow-up with PCP (7) Protein-calorie malnutrition, severe: Code(s): E43 - Unspecified severe protein-calorie malnutrition Status: Acute Assessment and Plan: -chemical educator consulted, patient refused to talk a chemical educator DS: Summary Hospital Course Reason for hospitalization: Diabetic ketoacidosis Hospital Course: Patient is a 45-year-old woman noncompliant diabetic comes to the hospital with DKA. She states she stopped taking her insulin few days ago and progressively had polydipsia polyuria and went into DKA. She is brought to the hospital by EMS. A DKA was resolved with insulin drip and a short ICU stay. We were able to transition patient back to her home regimen metformin b.i.d. and Lantus 20 units q.h.s.. Her potassium was repeated for DKA. Patient refused to talk to chemical educator. I encouraged patient to change her attitude toward her diabetes, otherwise she will do poorly, and that she has been on life at risk. I also attempted smoking cessation discussion however she was not receptive. Patient states she would like to follow-up with her PCP her diabetes management. I gave refills for Lantus and metformin. Patient's DKA was from lack of insulin use, a refill and hopefully she will not go back into DKA if she takes her insulin as prescribed. Patient's vitals stable, labs stable, patient stable for discharge. Time spent discussing smoking cessation with patient: 3 to 10 minutes Status at Discharge Functional status at discharge: independent ambulation Overall status at discharge: patient is back to baseline Time Spent with Patient Time attestation: Total time spent providing and/or coordinating discharge services:35 Time spent: Greater than 30 minutes Exam Narrative: Exam Narrative: - GENERAL: Thin ill-appearing
[2020-10-25] MEDS: POTASSIUM CHLORIDE 20 MEQ TABLET 40 MEQ PO ×2 (09:41→14:22)
[2020-10-25] MEDS: ENOXAPARIN 40 MG/0.4 ML SYRINGE SUB-Q (09:41)
--- NOTE | 2020-10-25 10:11 | PCRCNOTE ---
Window of time for administration has passed. See next scheduled administration.
[2020-10-25 11:39] LABS: Glucose Point of Care 369 (65-105)
[2020-10-25] MEDS: INSULIN ASPART (*BKC) 100 UNITS/ML SUB-Q (11:39)
--- NOTE | 2020-10-25 12:11 | PCDIET ---
Physician consult for DM education. Patient seen today for diabetic education. HbA1c greater than 14%. According to MD notes patient has not been taking DM medications. Discussed diabetic diet. She states to weight loss of at least 30 ibs in the past 3 months. Glucerna shakes have been added for additional kcal and proteins needs, providing an additional 220 kcals and 10 gms protein. She was also given a diabetic management booklet today. Patient Instruction also attached. Thank you for the consult.
--- NOTE | 2020-10-25 12:20 | PCCDE ---
Consult received 10/24 for diabetes education r/t admit with DKA. Pt wasn't taking medications/insulin. ? Ran out of meds. Pt is insured with [employer]. Attempted to meet with pt but she had the covers pulled over her head. Pt declined to talk; sts not now, I don't feel good. Pt pulled the covers back over head and would not answer any more questions. Pt has Diabetes Management book.
[2020-10-25 16:00] VITALS: BP 132/68; PULSE 18; RESP 92; TEMP 36.6; O2SAT 98
[2020-10-25 17:15] LABS: Glucose Point of Care 463 (65-105)
[2020-10-25] MEDS: INSULIN ASPART (*BKC) 100 UNITS/ML 15 UNITS SUB-Q (17:27)
[2020-10-25] MEDS: FLUTICASONE/SALMETEROL 115-21 MCG INHALER 1 PUFF 2 PUFF INHALATION (18:11)
== END 2020-10-25 19:00 | disposition home or self-care (01) | DRG 420 ==
LOC: ANHICU 10-24 00:07 → ANH2MED 10-25 12:18 → ANHICU 10-28 09:57
PROVIDERS: Internal Medicine; Physician Assistant; Admitting Provider Internal Medicine; Visit Provider Student in an Organized Health Care Education/Training Program
DX: E10.10 Type 1 diabetes mellitus with ketoacidosis without coma (principal); G47.33 Obstructive sleep apnea (adult) (pediatric); J44.9 Chronic obstructive pulmonary disease, unspecified; E87.6 Hypokalemia; E83.42 Hypomagnesemia; I37.0 Nonrheumatic pulmonary valve stenosis; E43 Unspecified severe protein-calorie malnutrition; F17.210 Nicotine dependence, cigarettes, uncomplicated; Z68.1 Body mass index [BMI] 19.9 or less, adult; Z91.19 Patient's noncompliance with other medical treatment and regimen; Z95.828 Presence of other vascular implants and grafts; G40.909 Epilepsy, unspecified, not intractable, without status epilepticus
CPT/HCPCS: 36415; 71046; 80048; 80053; 81001; 83036; 83735; 84100; 85027; 93306; 94640; 94762; A9270; J1650; J1815; J3475; J3480; J7030; J7120

== ENCOUNTER 2021-02-28 08:11 | Emergency (ER) | payer OTHER, SELFPAY ==
[2021-02-28] VITALS (25 sets, daily range): BP systolic 92–127; BP diastolic 62–87; PULSE 95–136; RESP 11–25; TEMP 36; O2SAT 98–100
--- NOTE | ~2021-02-28 | XR_ITS ---
EXAMINATION: XR chest 1V portable DATE: 02/28/2021 08:42 INDICATION: Shortness of breath. TECHNIQUE: A single frontal view of the chest was obtained. COMPARISON: Chest 2 views 10/24/2020 FINDINGS: Left lung is hyperexpanded. A calcified left lung nodule is consistent with old granulomato us disease. No pleural effusion or pneumothorax. The heart size is normal. Median sternotomy wires ar e noted. Surgical clips in the right upper quadrant are likely from cholecystectomy. IMPRESSION: 1. No acute cardiopulmonary disease. Reviewed, dictated and finalized at location A.
--- NOTE | ~2021-02-28 | CT_ITS ---
EXAMINATION: CT abdomen pelvis wo con EXAM DATE: 02/28/2021 10:51 INDICATION: Abdominal pain, elevated alk phosphatase, liver enzymes. DKA. Nonverbal. TECHNIQUE: Spiral CT of the abdomen and pelvis was performed without contrast. Axial, coronal and s agittal images were reviewed. The dose-length product (DLP) for this examination was 202.09 mGy-cm. The exposure was tailored according to patient size (auto mA exposure control), and iterative recons truction (ASIR) was used as additional dose reduction technique. Comparison is made to prior examinat ion from 02/09/2017. FINDINGS: Patient is cachectic with paucity of fat, which does limit sensitivity for detecting acute intra-abdominal findings. The liver, spleen, adrenal glands and pancreas are grossly unremarkable. There are cholecystectomy clips. There is mild bilateral hydronephrosis, but no nephrolithiasis or u reteral stones identified. Patient may have small anteverted uterus or there may be hysterectomy. T here is a Ross catheter in the bladder, only mild distention of the bladder is present. There is no retroperitoneal or pelvic lymphadenopathy. Several right lower quadrant surgical clips. Appendix is not identified. The stomach and small bowel are unremarkable. There is moderate to large amount of colonic stool. No free intraperitoneal gas . The heart is normal in size. There are no pericardial or pleural effusions. The lung bases are unremarkable. There are no osteoblastic or osteolytic lesions identified. IMPRESSION: 1. Moderate to large amount of colonic stool, consider constipation. 2. Ross catheter. Mildly distended bladder, and mild bilateral hydronephrosis but without nephrolit hiasis or obstructing stones identified. Reviewed, dictated and finalized at location A. IMPRESSION: 1. Moderate to large amount of colonic stool, consider constipation. 2. Ross catheter. Mildly distended bladder, and mild bilateral hydronephrosis but without nephrolithiasis or obstructing stones identified.
[2021-02-28 08:21] LABS: Base Excess ABG -27.4 mmol/L (0-2); HCO3 ABG 4.7 mmol/L (23-29); Oxygen Content ABG 19.7 %vol (16.0-22.0); Oxygen Saturation ABG 87.9 % (95-97); Oxyhemoglobin 87.1 % (94-100); PCO2 ABG 24.5 mmHg (35-45); PO2 ABG 68.2 mmHg (80-90); Total Hemoglobin 16.1 g/dL
[2021-02-28 08:23] LABS: Device NASAL CANNULA; Liters per Minute 4.5 LPM; Site Drawn LEFT BRACHIAL
--- NOTE | 2021-02-28 08:24 | ECG_ITS ---
Measurements Intervals [place] Rate: 101 P: 77 [place]: 152 QRS: 148 QRSD: 102 T: 45 QT: 401 QTc: 521 Interpretive Statements SINUS TACHYCARDIA RIGHT AXIS DEVIATION RIGHT ATRIAL ENLARGEMENT POOR R WAVE PROGRESSION, ANTERIOR LEADS MINIMAL Q WAVES- INFERIOR LEADS BASELINE ARTIFACT- I, II, III, AVR, AVL, AVF, V1-V5 BORDERLINE ECG Electronically Signed On 02-28-2021 8:53:26 CDT by Moreno Ovalle D.O.
[2021-02-28] MEDS: SODIUM BICARBONATE 8.4% 50 MEQ/50 ML SYRINGE IV PUSH ×2 (08:34→09:51)
[2021-02-28 08:37] LABS: Basophils Absolute Auto 0.05 K/mm3 (0.00-0.10); Basophils Percent Auto 0.4 % (0.0-1.0); Eosinophils Absolute Auto 0.02 K/mm3 (0.02-0.50); Eosinophils Percent Auto 0.1 % (1.0-6.0); Hematocrit 46.4 % (35.0-49.0); Hemoglobin 15.7 g/dL (12.0-15.0); Immature Granulocyte Absolute 0.19 K/mm3 (0.00-0.00); Immature Granulocyte Percent A 1.4 % (0.0-0.0); Lymphocytes Absolute Auto 3.53 K/mm3 (1.10-4.50); Lymphocytes Percent Auto 25.6 % (18.0-42.0); Mean Corpuscular HGB Conc 33.8 g/dL (32.0-36.0); Mean Corpuscular Hemoglobin 30.6 pg (27.0-31.0); Mean Corpuscular Volume 90.4 fL (78.0-102.0); Monocytes Absolute Auto 0.61 K/mm3 (0.10-0.90); Monocytes Percent Auto 4.4 % (2.0-11.0); Neutrophils Absolute Auto 9.4 K/mm3 (1.7-7.2); Neutrophils Percent Auto 68.1 % (50.0-70.0); Platelet Count Result 192 K/mm3 (150-420); Red Blood Count 5.13 M/mm3 (4.20-5.40); Red Cell Distribution Width 12.1 % (11.6-14.4); White Blood Count 13.8 K/mm3 (4.8-10.8)
[2021-02-28] MEDS: SODIUM CHLORIDE 0.9% IV 1,000 ML 999 ML IV CONT (08:42)
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
[2021-02-28 08:50] LABS: Prothrombin Time 10.5 Seconds (9.50-12.10)
[2021-02-28 08:56] LABS: Alanine Aminotransferase 102 U/L (14-59); Alkaline Phosphatase 452 U/L (46-116); Anion Gap 29 mmol/L (8-16); Aspartate Amino Transferase 52 U/L (15-37); Bilirubin,Total 0.6 mg/dL (0.00-1.00); Blood Urea Nitrogen 39 mg/dL (7-18); Calcium 8.3 mg/dL (8.5-10.1); Carbon Dioxide 7 mmol/L (21-32); Chloride 90 mmol/L (98-108); D Dimer 1.02 mg/L (0.19-0.50); Estimated Glomerular Filt Rate 36; Potassium 3.9 mmol/L (3.5-5.1); Sodium 126 mmol/L (136-145); Total Protein 7.1 g/dL (6.4-8.2); Troponin I 7.8 ng/L (0.00-60.4)
[2021-02-28 08:58] LABS: Glucose 571 mg/dL (70-99); Lactic Acid Reflex 2.7 mmol/L (0.4-2.0); Osmolality Calculated 297 mOsm/kg (285-295)
[2021-02-28 09:00] LABS: BNP 28.9 pg/mL (0-100)
--- NOTE | 2021-02-28 09:10 | PC.NURSE ---
pt restless, removing mask. pt nasal cannula turned on to 3 liters due to pt removing mask. pt keeps stating i am dying . Pt states she needs to have bowel movement and that she has been constipated. pt put on bedpan with no results. pad and depends placed on pt after removing bedpan. vitals remain the same.
[2021-02-28 09:22] LABS: Amylase 15 U/L (25-115); Lipase 49 U/L (73-393)
[2021-02-28] MEDS: INSULIN HUMAN REGULAR (*BKC) 100 UNITS/ML IV PUSH (09:26)
[2021-02-28 09:27] LABS: Appearance Urine Clear (Clear); Bilirubin Urine 1+ (Negative); Color Urine Yellow (Yellow); Glucose Urine UA 3+ (Negative); Ketones Urine 3+ (Negative); Leukocyte Esterase Ur Negative (Negative); Nitrate Urine Negative (Negative); Protein Urine 1+ (Negative); Specific Grav Ur >= 1.030 (1.010-1.020); Urobilinogen Urine 0.2 mg/dL (0.2-1.0); pH Urine 5.5 (5.0-8.0)
[2021-02-28 09:32] LABS: Add Urine Microscopic? YES; Blood Urine Trace-Intact (Negative); RBC Urine 0-2 /hpf (0-2); Squamous Epithelial Cell Urine Few /hpf (Few); WBC Urine 0-3 /hpf (0-3)
[2021-02-28 09:33] LABS: Bacteria Urine 3+ /hpf; Mucus Urine Moderate /lpf
[2021-02-28 09:36] LABS: Base Excess ABG -27.9 mmol/L (0-2); HCO3 ABG 3.1 mmol/L (23-29); Oxygen Content ABG 20.9 %vol (16.0-22.0); Oxygen Saturation ABG 98.5 % (95-97); Oxyhemoglobin 97.7 % (94-100); PO2 ABG 171.1 mmHg (80-90)
[2021-02-28] MEDS: SODIUM CHLORIDE 0.9% IV 1,000 ML 150 ML IV CONT (09:37)
[2021-02-28 09:40] LABS: pH ABG 6.93 (7.35-7.45)
[2021-02-28 09:41] LABS: Device NASAL CANNULA; Site Drawn LEFT BRACHIAL
[2021-02-28] MEDS: LORazepam INJ (*CRX) 2 MG/ML VIAL 0.5 MG IV PUSH (09:55)
[2021-02-28 10:07] LABS: Glucose Point of Care > 450 (65-105)
[2021-02-28 10:07] LABS: Glucose Point of Care 412 (65-105)
--- NOTE | 2021-02-28 10:07 | PC.NURSE ---
report to Caitlin at [facility]
--- NOTE | 2021-02-28 10:10 | PC.NURSE ---
pt resting comfortably on stretcher, pt more relaxed.
[2021-02-28 10:14] LABS: Amphetamine Screen Urine Positive (Negative); Barbiturate Screen Urine Negative (Negative); Benzodiazepines Screen Urine Negative (Negative); Cannabinoid Screen Urine Negative (Negative); Cocaine Screen Urine Negative (Negative); Methadone Screen Urine Negative (Negative); Opiate Screen Urine Negative (Negative); Phencyclidine Screen Urine Negative (Negative)
[2021-02-28] MEDS: INSULIN HUMAN REGULAR (*BKC) 100 UNITS in SODIUM CHLORIDE 0.9% IV 99 ML IV CONT (10:15)
[2021-02-28 10:25] LABS: Urine Pregnancy Test Negative
[2021-02-28 10:26] LABS: Pregnancy On Board Control Positive
--- NOTE | 2021-02-28 10:43 | PC.NURSE ---
pt to ct via stretcher.
--- NOTE | 2021-02-28 10:50 | PC.NURSE ---
[facility] contacted for transfer.
[2021-02-28 11:01] LABS: Glucose Point of Care 426 (65-105)
[2021-02-28] MEDS: POTASSIUM BICARBONATE 25 MEQ TABEF 50 MEQ PO (11:07)
[2021-02-28] MEDS: LACTATED RINGERS 1,000 ML 150 ML (11:08)
--- NOTE | 2021-02-28 11:30 | PC.NURSE ---
Pt transfered with LR and insulin drip infusing.
[2021-02-28 11:35] LABS: Reflex Lactic Acid Yes or No Add Lactic
--- NOTE | 2021-02-28 14:30 | PC.NURSE ---
Pt transported to [facility] via [facility] ambulance accompanied by this RN. No change in pt status upon transfer. last set of vs bp 100/70, hr 96, spo2 on RA 99%, etco2 17, respiratory rate 12.
== END 2021-02-28 11:30 | disposition short-term general hospital (02) ==
PROVIDERS: Emergency Provider Emergency Medicine
DX: E10.10 Type 1 diabetes mellitus with ketoacidosis without coma (principal)
CPT/HCPCS: 36415; 36600; 71045; 74176; 80053; 80307; 81001; 81025; 82150; 82805; 83605; 83690; 83880; 84484; 85025; 85380; 85610; 93005; 96361; 96374; 96375; 99284; 99285; A9270; J1815; J2060; J7030; J7120